=== PATIENT | female | born 1955 | race Caucasian/White ===

== ENCOUNTER 2019-11-06 08:09 | Outpatient (CLI) | payer MEDICARE, SELFPAY ==
--- NOTE | 2019-11-06 08:15 | MM_ITS ---
WS: [id number] BILATERAL SCREENING DIGITAL MAMMOGRAM WITH CAD HISTORY: SCREENING COMPARISON: 05/25/2018, 12/16/2016 and 11/15/2015 Bilateral CC and MLO views submitted. Computer aided detection analyzed. Breast composition: There are scattered areas of fibroglandular density. No suspicious masses, microc alcifications or architectural distortion. Benign rodlike calcifications in the RIGHT breast. MM/[place] [id number] IMPRESSION: BI-RADS: 2-Benign FOLLOW UP: 1 Year Follow-up
== END 2019-11-06 08:10 | disposition home or self-care (01) ==
PROVIDERS: PCP Internal Medicine; Visit Provider Internal Medicine
DX: Z12.31 Encounter for screening mammogram for malignant neoplasm of breast (principal)
CPT/HCPCS: 77067

== ENCOUNTER 2019-12-26 16:11 | Outpatient (CLI) | payer MEDICARE, SELFPAY ==
--- NOTE | 2019-12-26 | MR_ITS ---
WS: [id number] EXAM: MR shoulder LT wo con* [id number] DATE OF EXAMINATION: 12/26/2019, 1722 hours COMPARISON: None. HISTORY: 64 years old with pain in the left shoulder TECHNIQUE: Oblique coronal T1, fat sat proton density and fat sat T2; oblique sagittal fat-sat proton density and fat sat T2; axial fat sat proton density. FINDINGS: Beginning posteriorly the teres minor muscle and tendon are normal in appearance. Infraspinatus muscl e is normal in appearance. There is tendinopathy within the distal tendon with intrasubstance microte ars. No tear to the joint or bursal surface seen. Supraspinatus muscle is of normal caliber. There is tendinopathy within the tendon with intrasubstanc e microtears. Small amount of increased signal is seen around the tendon suggesting peritendinitis ch prakash. There is a tiny area of tearing which is considered minute which may extend to the bursal surfa ce in the anterior corner at the level of the interval. Otherwise no tear to the joint or bursal surf osvaldo is seen. Subscapularis muscle and tendon are normal in appearance. Long head of the biceps courses through the inner bicipital groove to insert on the anterior/superior aspect of the labrum. No definite labral a bnormality is seen. There are findings of arthritis within the AC joint with undersurface osteophyte formation which has mass effect upon the supraspinatus muscle at the myotendinous junction with some minimal fluid in sub acromial bursa. Imaging findings are suggestive for impingement. Acromion is a type II with a neutral slope. MR/MR shoulder LT wo con* [id number] IMPRESSION: Tendinopathy within both infraspinous and supraspinatus tendons. In the very an terior corner of the supraspinatus tendon at the level of the interval there ma y be a small fenestrated bursal sided tear component. This is considered minute in size if present. AC joint arthritis with undersurface osteophyte formation with mass effect upon the supraspinatus muscle belly.
== END 2019-12-26 16:12 | disposition home or self-care (01) ==
LOC: RADSHAW 16:17
PROVIDERS: PCP Internal Medicine; Visit Provider Internal Medicine
DX: M13.812 Other specified arthritis, left shoulder (principal)
CPT/HCPCS: 73221

== ENCOUNTER → 2020-01-24 12:02 | Outpatient (BNVA) | payer MEDICARE, SELFPAY | PROVIDERS: PCP Internal Medicine; Referring Provider Nurse Practitioner Family; Visit Provider Orthopaedic Surgery | DX: M54.12 Radiculopathy, cervical region (principal) | CPT/HCPCS: 72040 ==

== ENCOUNTER 2020-12-05 11:13 | Outpatient (CLI) | payer MEDICARE, SELFPAY ==
--- NOTE | 2020-12-05 11:20 | MM_ITS ---
WS: [id number] BILATERAL DIGITAL SCREENING MAMMOGRAPHY WITH CAD CLINICAL INFORMATION: SCREENING HISTORY: Screening mammogram. No current complaints. COMPARISON: November 06, 2019 TECHNIQUE: Bilateral CC and MLO views. FINDINGS: Scattered fibroglandular densities bilaterally. Secretory calcifications right breast. No suspicious focal mass, asymmetry, calcifications, or architectural distortion. No evidence of malignancy. MM/[place] [id number] IMPRESSION: BI-RADS: 2-Benign FOLLOW UP: 1 Year Follow-up Recommend return to annual screening mammography.
== END 2020-12-05 11:14 | disposition home or self-care (01) ==
LOC: RADSHAW 11:17
PROVIDERS: PCP Internal Medicine; Visit Provider Internal Medicine
DX: Z12.31 Encounter for screening mammogram for malignant neoplasm of breast (principal)
CPT/HCPCS: 77067

== ENCOUNTER → 2021-10-16 08:04 | Outpatient (BNVA) | payer MEDICARE, SELFPAY | PROVIDERS: PCP Internal Medicine; Visit Provider Surgery | DX: Z12.11 Encounter for screening for malignant neoplasm of colon (principal) | CPT/HCPCS: 99024 ==

== ENCOUNTER 2021-12-04 05:54 | Day surgery (SDC) | payer MEDICARE, SELFPAY ==
[2021-12-02 09:22] VITALS: BMI 31.1
[2021-12-04 06:16] VITALS: BP 189/87; PULSE 59; RESP 18; TEMP 36; O2SAT 97
[2021-12-04] MEDS: sodium chloride 0.9% 1,000 ML 30 ML IV (06:26)
--- NOTE | 2021-12-04 06:44 | P.ANESASSM_ITS ---
Pre-Anesthetic Assessment Height/Weight: Height 1.57 m Weight 77.111 kg Temp Pulse Resp BP Pulse Ox O2 Del Method 96.8 F L 59 L 18 189/87 97 12/04/21 06:16 12/04/21 06:16 12/04/21 06:16 12/04/21 06:16 12/04/21 06:16 12/04/21 06:16 Operation Date: 12/04/21 07:00 Proposed Procedures p Colonoscopy 76896,Z12.11(Not Applicable) - Donato Clarke DO Familial anesthetic complications: none Was Beta Sarah taken within 24 hours: Yes Was Clonidine taken within 24 hours: N/A Last intake: Intake Last Liquid Date 12/03/21 Last Liquid Time 20:00 Last Solid Date 12/02/21 Last Solid Time 18:00 Social No alcohol and No tobacco Airway Submandibular: within normal limits Cervical ROM: within normal limits Mallampati: Class III Dentition: full Pulmonary Sleep Apnea (CPAP compliant) CV/HEM Hypertension None reported Hepatic None reported GI Gastroesophageal Reflux Disease (well controlled on medication) and Hiatal Hernia Metabolic None reported Musc/skel Fibromyalgia, Lower Back Pain and Osteoarthritis/DJD Neuropsych Depression Anesthetic Plan ASA status: 3 Anesthesia: MAC Medications/Allergies Home Medications Medication Instructions Recorded Confirmed Last Taken Type aspirin 81 mg tablet,delayed 81 mg PO DAILY 01/24/20 12/04/21 12/03/21 History release atenolol 25 mg tablet 25 mg PO DAILY 01/24/20 12/04/21 12/04/21 History celecoxib 200 mg capsule 200 mg PO DAILY 01/24/20 12/04/21 12/03/21 History duloxetine 60 mg capsule,delayed 60 mg PO DAILY 01/24/20 12/04/21 12/03/21 History release sprinkle gabapentin 400 mg capsule 400 mg PO TID 01/24/20 12/04/21 12/03/21 History hydrocodone 5 mg-acetaminophen 325 1 tab PO BID PRN Pain 01/24/20 12/04/21 12/03/21 History mg tablet (Hospers) latanoprost 0.005 % eye drops 1 drop ophthalmic (eye) DAILY 01/24/20 12/04/21 12/03/21 History lisinopril 40 mg tablet 40 mg PO DAILY 01/24/20 12/04/21 12/03/21 History omega-3 fatty acids 1,000 mg 1,000 mg PO DAILY 01/24/20 12/04/21 12/03/21 History capsule (Fish Oil Concentrate) omeprazole 20 mg capsule,delayed 20 mg PO DAILY 01/24/20 12/04/21 12/03/21 History release pravastatin 20 mg tablet 20 mg PO DAILY 01/24/20 12/04/21 12/03/21 History tramadol 50 mg tablet 50 mg PO DAILY 01/24/20 12/04/21 12/03/21 History clonidine HCl 0.2 mg tablet 0.2 mg PO BID 10/16/21 12/04/21 12/03/21 History Allergies Allergy/AdvReac Type Severity Reaction Status Date / Time No Known Allergies Allergy Verified 12/04/21 06:11 Current Medications Generic Name Dose Route Start Last Admin Trade Name Freq PRN Reason Stop Dose Admin Sodium Chloride 1,000 mls @ 30 mls/hr 12/04/21 06:00 12/04/21 06:26 Sodium Chloride 0.9% IV 12/05/21 05:59 30 mls/hr .Q24H JACLYN Administration Data Anesthesia Cardiac Studies: No Data to Display
--- NOTE | 2021-12-04 06:58 | P.HP_ITS ---
Providers/Chief Complaint Primary Care Provider: Micheline Hodge MD Chief Complaint: Colon cancer screening History of Present Illness Zulma Colon is a 65 year old female who presents for her second screening colonoscopy. Her last one was quite sometime ago. She reports that she has having occasional bright red blood in small amounts on the toilet paper. Her last colonoscopy was reportedly normal. No other complaints Review of Systems General: Reports: 10 or more systems reviewed and unremarkable except in HPI and below Medications/Allergies Home Medications Medication Instructions Recorded Confirmed Last Taken Type aspirin 81 mg tablet,delayed 81 mg PO DAILY 01/24/20 12/04/21 12/03/21 History release atenolol 25 mg tablet 25 mg PO DAILY 01/24/20 12/04/21 12/04/21 History celecoxib 200 mg capsule 200 mg PO DAILY 01/24/20 12/04/21 12/03/21 History duloxetine 60 mg capsule,delayed 60 mg PO DAILY 01/24/20 12/04/21 12/03/21 History release sprinkle gabapentin 400 mg capsule 400 mg PO TID 01/24/20 12/04/21 12/03/21 History hydrocodone 5 mg-acetaminophen 325 1 tab PO BID PRN Pain 01/24/20 12/04/21 12/03/21 History mg tablet (Lorimor) latanoprost 0.005 % eye drops 1 drop ophthalmic (eye) DAILY 01/24/20 12/04/21 12/03/21 History lisinopril 40 mg tablet 40 mg PO DAILY 01/24/20 12/04/21 12/03/21 History omega-3 fatty acids 1,000 mg 1,000 mg PO DAILY 01/24/20 12/04/21 12/03/21 History capsule (Fish Oil Concentrate) omeprazole 20 mg capsule,delayed 20 mg PO DAILY 01/24/20 12/04/21 12/03/21 History release pravastatin 20 mg tablet 20 mg PO DAILY 01/24/20 12/04/21 12/03/21 History tramadol 50 mg tablet 50 mg PO DAILY 01/24/20 12/04/21 12/03/21 History clonidine HCl 0.2 mg tablet 0.2 mg PO BID 10/16/21 12/04/21 12/03/21 History Allergies Allergy/AdvReac Type Severity Reaction Status Date / Time No Known Allergies Allergy Verified 12/04/21 06:11 Vitals/I&O/Wt Last Vital Signs Temp 96.8 F L 12/04/21 06:16 Pulse 59 L 12/04/21 06:16 Resp 18 12/04/21 06:16 BP 189/87 12/04/21 06:16 Pulse Ox 97 12/04/21 06:16 O2 Del Method 12/04/21 06:16 Weight last 48 hrs Weight 170 lb Physical Exam Narrative: General : Patient is well developed , no acute distress, oriented x3 Head : Normal cephalic, a-traumatic. Ears : Pinnae and external canal are normal. Hearing is normal. Eyes : PERRLA, Sclera and injection are normal. No conjunctival discharge. Nose : Mucous membranes are without erythema. Throat : buccal mucosa is normal, gums are without significant recession or hypertrophy. Lungs : Equal chest rise bilaterally, no use of accessory muscles, trachea is midline. Cor : Rate and rhythm are normal. Abdomen : Soft, ND, NT, no g/r/m Extremities : No edema, no cyanosis or clubbing, dorsalis pedis pulses are present bilaterally, non-tender to palpation of calves. Upper extremities are normal bilaterally. Back : non-tender to palpation, no CVA tenderness. Neuro : CN II - XII intact, Upper and lower extremities have equal and full strength A&P Assessment and plan (1) Colon cancer screening: Status: Acute Plan Colonoscopy The risks and benefits of the procedure, including bleeding, infection, intestinal perforation requiring surgery, missed lesion, or explained to the patient. He is understanding of the risks and wishes to proceed. Attestations Medical Necessity Statement*: Patient will be discharged home after the procedure Coding Level of Care Code Acute Communications Attendant for Siri Sawyer Diagnoses Colon cancer screening Z12.11
[2021-12-04 07:24] VITALS: BP 116/59; PULSE 51; RESP 18; TEMP 36.6; O2SAT 98
[2021-12-04 07:36] VITALS: BP 133/71; PULSE 54; RESP 18; TEMP 36.5; O2SAT 100
--- NOTE | 2021-12-04 12:46 | ANE.PACU2 ---
Inpatient post-anesthesia follow up: Airway intact: Yes Vital signs: Temperature 97.7 F Pulse Rate 54 Respiratory Rate 18 Blood Pressure 133/71 Pulse Oximetry 100 Oxygen Delivery Me thod Room Air Oxygen Flow Rate Fraction of Inspir ed Oxygen Hydration adequate: Yes Nausea and vomiting: Yes Pain level: 1 Mental status: Baseline
== END 2021-12-04 07:52 | disposition home or self-care (01) ==
PROVIDERS: PCP Internal Medicine; Visit Provider Surgery
PROC: 0DJD8ZZ Inspection of Lower Intestinal Tract, Via Natural or Artificial Opening Endoscopic (ICD-10-PCS; CPT 45378; principal; 2021-12-04 07:00)
DX: Z12.11 Encounter for screening for malignant neoplasm of colon (principal); Z79.82 Long term (current) use of aspirin; K64.0 First degree hemorrhoids; G47.30 Sleep apnea, unspecified; I10 Essential (primary) hypertension; K21.9 Gastro-esophageal reflux disease without esophagitis; M79.7 Fibromyalgia; F32.A Depression, unspecified
CPT/HCPCS: 45378; J2704; J3490; J7030

== ENCOUNTER 2022-05-28 13:12 | Outpatient (CLI) | payer MEDICARE, SELFPAY ==
--- NOTE | 2022-05-28 13:18 | MM_ITS ---
WS: [id number] BILATERAL 3D TOMOSYNTHESIS DIGITAL SCREENING MAMMOGRAPHY WITH CAD CLINICAL INFORMATION: SCREENING HISTORY: Screening mammogram. No current complaints. COMPARISON: 2020 TECHNIQUE: Bilateral CC and MLO views. FINDINGS: Scattered fibroglandular densities bilaterally. No suspicious focal mass, asymmetry, calcifications, or architectural distortion. No evidence of malignancy. Vascular calcification. A few incidental punc torres calcifications. MM/[place] [id number] IMPRESSION: BI-RADS: 2-Benign FOLLOW UP: 1 Year Follow-up Recommend return to annual screening mammography.
== END 2022-05-28 13:13 | disposition home or self-care (01) ==
LOC: RAD 13:13
PROVIDERS: PCP Internal Medicine; Visit Provider Internal Medicine
DX: Z12.31 Encounter for screening mammogram for malignant neoplasm of breast (principal)
CPT/HCPCS: 77063; 77067

== ENCOUNTER 2023-04-14 16:41 | Outpatient (CLI) | payer MEDICARE, SELFPAY ==
--- NOTE | 2023-04-14 | MR_ITS ---
WS: [id number] MRI HEAD WITHOUT CONTRAST TECHNIQUE: Sagittal T1, T2 axial, T2 axial FLAIR, axial and coronal T1 images, axial susceptibility w eighted imaging, axial diffusion weighted images, and coronal T2 images were obtained. CLINICAL INFORMATION: DIZZINESS GIDDINESS COMPARISON: None. FINDINGS: In the LEFT frontal lobe there is a T1 hyperintense heterogeneous extra-axial lesion measuring approx imately 2.6 x 1.9 cm. Associated susceptibility artifact which may represent hemosiderin versus calci fication. No underlying edema in the LEFT frontal lobe. Recommend further evaluation with noncontrast head CT and MRI of the head with gadolinium enhancement. No evidence of restricted diffusion to suggest acute ischemia. Normal posterior fossa. Normal vascula r flow voids at the skull base. No extra-axial fluid collections. Mild mucosal thickening in the para nasal sinuses. Normal optic chiasm and pituitary infundibulum. Mild symmetric atrophy temporal lobes and hippocampal formations. IMPRESSION: 1. Heterogeneous extra-axial lesion overlying the LEFT frontal lobe with associated mass effect. No significant underlying edema. 2. LEFT frontal mass demonstrates T1 hyperintensity with susceptibility artifact compatible with hem osiderin and/or calcification. Recommend further evaluation with noncontrast head CT and MRI with paulina olinium. Recommend neurosurgery consultation 3. No restricted diffusion to suggest acute ischemia. 4. Mild small vessel changes with mild to moderate parenchymal volume loss. Notified Micheline Hodge MD at 04/15/2023 9:25 AM.
== END 2023-04-14 16:42 | disposition home or self-care (01) ==
LOC: RAD 16:41
PROVIDERS: PCP Internal Medicine; Visit Provider Internal Medicine
DX: R42 Dizziness and giddiness (principal); G93.9 Disorder of brain, unspecified
CPT/HCPCS: 70551

== ENCOUNTER 2023-04-19 15:31 | Outpatient (CLI) | payer MEDICARE, SELFPAY ==
--- NOTE | 2023-04-19 | CTR_ITS ---
PROCEDURE INFORMATION: Exam: CT Head Without Contrast Exam date and time: 04/19/2023 4:02 PM Age: 67 years old Clinical indication: Condition or disease; Other: Frontal lobe mass TECHNIQUE: Imaging protocol: Computed tomography of the head without contrast. Radiation optimization: All CT scans at this facility use at least one of these dose optimization techniques: automated exposure control; mA and/or kV adjustment per patient size (includes targeted exams where dose is matched to clinical indication); or iterative reconstruction. REPORTING DATA: Count of CT and Cardiac NM exams in prior 12 months: This patient has received 0 known CTs and 0 known cardiac nuclear medicine studies in the 12 months prior to the current study. COMPARISON: MR head wo con* [id number] 04/14/2023 5:23 PM RADIATION DOSE METRICS: Total DLP (mGy-cm): 1003.2 FINDINGS: Brain: Fat containing extra-axial mass left frontal lobe anterolaterally is seen measuring up to 2.4 cm. This has several small adjacent lobulations anteriorly. It lies just deep to a focal area of bone defect superolateral to the left orbit. There are also several small extra-axial fat lobulations overlying right frontal lobe and parasagittal location. Cerebral ventricles: No ventriculomegaly. Paranasal sinuses: Visualized sinuses are unremarkable. No fluid levels. Mastoid air cells: Visualized mastoid air cells are well aerated. Bones/joints: See Brain finding. Soft tissues: Unremarkable. CT/CT head wo con* [id number] IMPRESSION: Fat containing extra-axial mass adjacent to left frontal lobe with several additional locations and separately several small fat containing areas along the inner table of the skull left frontal region parasagittally. Findings consistent with dermoid cyst. Focal bony defect may indicate dermal sinus tract. The separate fat containing areas raise the question of rupture.
== END 2023-04-19 15:32 | disposition home or self-care (01) ==
PROVIDERS: PCP Internal Medicine; Visit Provider Internal Medicine
DX: G93.9 Disorder of brain, unspecified (principal)
CPT/HCPCS: 70450

== ENCOUNTER 2023-04-20 12:44 | Outpatient (CLI) | payer MEDICARE, SELFPAY ==
--- NOTE | 2023-04-20 12:53 | MR_ITS ---
WS: [id number] MRI BRAIN WITH CONTRAST HISTORY: LEFT FRONTAL LOBE MASS COMPARISON: CT head 04/19/2023 and prior MRI brain 04/14/2023. TECHNIQUE: Multiplanar imaging performed through the brain with MultiHance 14 ml's IV. Precontrast im aging performed on 04/14/2023. Cystic mass is reidentified in the LEFT frontal lobe. Mass is slightly lobulated and is of increased T1 signal as noted on the prior noncontrast examination. On the FSPGR sequence which does have fat hill ppression this mass completely suppresses with only mild increased signal in the periphery with mild enhancement. This is most consistent with a dermoid cyst. Highly suspicious for rupture as there are several lipid droplets noted adjacent to the dermoid cyst and also along the superior vertex in the subarachnoid space. There is a small dermal sinus tract extending through the frontal bone. IMPRESSION: 1. Fat-containing mass centered in the LEFT frontal lobe cortex is most consistent with a ruptured d ermoid cyst. Patient is at risk for a chemical meningitis. 2. Several fat droplets are noted adjacent to the dermoid cyst and also in the subarachnoid space al siena the vertex.
[2023-04-20] MEDS: gadobenate dimeglumine 20 mL vial IV (13:45)
== END 2023-04-20 12:45 | disposition home or self-care (01) ==
LOC: RAD 12:44
PROVIDERS: PCP Internal Medicine; Visit Provider Internal Medicine
DX: G93.9 Disorder of brain, unspecified (principal)
CPT/HCPCS: 70552; A9577

== ENCOUNTER 2023-06-28 12:47 | Outpatient (CLI) | payer MEDICARE, SELFPAY ==
--- NOTE | 2023-06-28 12:59 | USCV_ITS ---
Zulma Colon Age: 67 Gender: F : 1955 Exam Date: 06/28/2023 13:23 Ordering Phys: Micheline Hodge MD Technologist: CT Exam [place] [facility] [place]: dizziness Risk Factors: Previous Vascular Surgery: Right Brachial BP: / Left Brachial BP: / Right Left Velocity (cm/s) Spectral Plaque Velocity (cm/s) Spectral Plaque Syst/Diast Broadening Syst/Diast Broadening 65.90/ 14.90 Prox CCA 85.00 / 22.40 71.70/ 17.30 Mid CCA 72.50 / 18.70 77.50/ 21.90 Distal CCA 67.50 / 14.90 78.90/ 18.00 Prox ICA 51.50 / 17.40 52.40/ 19.50 Mid ICA 50.40 / 17.40 62.20/ 12.30 Distal ICA 50.30 / 18.40 55.60 ECA 78.80 1.00 ICA/CCA Antegrade Vertebral Antegrade 30.60/ 7.20 cm/s 50.10/ 11.30 cm/s Bi Subclavian Bi CONCLUSIONS Right ICA stenosis <50%. Moderate calcified atheromatous plaque right carotid bulb/ICA. Left ICA stenosis <50%. Moderate calcified atheromatous plaque left carotid bulb/ICA. Normal antegrade Doppler flow noted in the right vertebral artery. Normal antegrade Doppler flow noted in the left vertebral artery. Terrell Sylvester MD (Electronically Signed) Final Date: 28 June 2023 16:39 S
== END 2023-06-28 12:48 | disposition home or self-care (01) ==
LOC: RAD 12:48
PROVIDERS: PCP Internal Medicine; Visit Provider Internal Medicine
DX: R42 Dizziness and giddiness (principal); I65.23 Occlusion and stenosis of bilateral carotid arteries
CPT/HCPCS: 93880

== ENCOUNTER 2023-08-11 11:55 | Outpatient (CLI) | payer MEDICARE, SELFPAY ==
--- NOTE | 2023-08-11 11:57 | MM_ITS ---
WS: [id number] BILATERAL 3D TOMOSYNTHESIS DIGITAL SCREENING MAMMOGRAPHY WITH CAD CLINICAL INFORMATION: SCREENING HISTORY: Screening mammogram. No current complaints. COMPARISON: 2022 TECHNIQUE: Bilateral CC and MLO views. FINDINGS: The breasts are composed of heterogeneous fibroglandular density tissue, which can limit the detectio n of small underlying mass lesions. No suspicious mass, asymmetry, calcifications, or architectural d istortion. No evidence of malignancy. Vascular calcifications. Incidental punctate calcifications. IMPRESSION: MM/[place] [id number] BI-RADS: 2-Benign FOLLOW UP: 1 Year Follow-up Recommend return to annual screening mammography.
== END 2023-08-11 11:56 | disposition home or self-care (01) ==
LOC: RAD 11:55
PROVIDERS: PCP Internal Medicine; Visit Provider Internal Medicine
DX: Z12.31 Encounter for screening mammogram for malignant neoplasm of breast (principal)
CPT/HCPCS: 77063; 77067

== ENCOUNTER 2024-01-07 14:51 | Outpatient (CLI) | payer MEDICARE, SELFPAY ==
--- NOTE | 2024-01-07 14:56 | USCV_ITS ---
Isaiah Zulma Age: 68 Gender: F : 1955 Exam Date: 01/07/2024 15:11 Ordering Phys: Micheline Hodge MD Technologist: CT Exam Location: [facility] – [place] Indication: murmur BP: 128 / 82 HR: 52 Rhythm: Sinus Technical Quality: Adequate MEASUREMENTS (Male / Female) Normal Values 2D ECHO LVOT Diameter 2.0 cm LV Ejection Fraction MOD 4C 58.1 % LV Ejection Fraction MOD 2C 71.0 % LV Ejection Fraction 2C AL 71.5 % LA Diameter 3.1 cm RA Systolic Volume 4C AL 17.5 ml RA Systolic Volume 4C MOD 17.1 ml LA Sys Volume AL 29.4 cm cubed LA Sys Volume Index AL 16.3 cm cubed/m squared Aorta at Sinotubular Diameter 1.9 cm IVC Diameter 1.9 cm M-MODE LA Ao Ratio MM 2.0 AV Cusp Separation MM 2.0 cm DOPPLER AV Peak Velocity 125.0 cm/s LVOT Peak Velocity 102.0 cm/s AV Area Cont Eq vti 2.7 cm squared AV Area Cont Eq pk 2.6 cm squared MV Peak Velocity 93.0 cm/s MV Area PHT 3.0 cm squared Mitral E to A Ratio 0.7 TV Peak Velocity 158.5 cm/s TR Peak Velocity 189.0 cm/s TR Peak Gradient 14.3 mmHg TV Peak E Velocity 55.0 cm/s Right Atrial Pressure 3.0 mmHg Pulmonary Artery Systolic Pressu 17.3 mmHg FINDINGS Left Ventricle Left ventricular is normal in size. LV systolic function is normal with EF of 60-65 %. No regional wall motion abnormalities are seen. Grade 1 disatolic dysfunction. Right Ventricle Normal in size and function Right Atrium Normal size Left Atrium Normal in size Mitral Valve Structurally normal mitral valve. Mild mitral regurgitation Aortic Valve Structurally normal aortic valve. No significant stenosis or regurgitation. Tricuspid Valve Mild tricuspid regurgitation. Insufficient TR jet to calculate RVSP Pulmonic Valve Not well visualized Pericardium Normal Aorta Normal in size IVC Appears to be normal CONCLUSIONS LV systolic function is normal with EF of 60-65% Grade 1 diastolic dysfunction Mild mitral regurgitation Mild tricuspid regurgitation No comparison studies are available. Hernandez Raphael MD (Electronically Signed) Final Date: 10 January 2024 18:58 S
== END 2024-01-07 14:52 | disposition home or self-care (01) ==
LOC: RAD 14:52
PROVIDERS: PCP Internal Medicine; Visit Provider Internal Medicine
DX: I50.30 Unspecified diastolic (congestive) heart failure (principal)
CPT/HCPCS: 93306

== ENCOUNTER 2024-05-11 17:38 | Inpatient (IN) | payer MEDICARE, SELFPAY ==
[2024-05-11] VITALS (15 sets, daily range): BP systolic 91–154; BP diastolic 58–100; PULSE 77–95; RESP 17–24; TEMP 36.7; O2SAT 90–96; BMI 30.2
--- NOTE | 2024-05-11 20:44 | XRR_ITS ---
PROCEDURE INFORMATION: Exam: XR Chest Exam date and time: 05/11/2024 9:19 PM Age: 68 years old Clinical indication: Shortness of breath and tachypnea; Additional info: Shortness of breath, cough, tachypnea TECHNIQUE: Imaging protocol: Radiologic exam of the chest. Views: 2 views. COMPARISON: CR XR cervical spine 3V* [id number] 01/24/2020 12:07 PM FINDINGS: Lungs: Patchy opacity in the right lower lung zone measuring 7 mm. No focal consolidation. Pleural spaces: Unremarkable. No pleural effusion. No pneumothorax. Heart/Mediastinum: Unremarkable. No cardiomegaly. Vasculature: There are aortic arch calcifications. Bones/joints: Moderate degenerative disease of bilateral acromioclavicular joints. Mild curvature of the lower thoracic spine convex to the right. XR/XR chest 2V insp/exp [id number] IMPRESSION: No acute cardiopulmonary process.
[2024-05-11 20:49] LABS: Basophils % 0.1 %; Hematocrit 44.3 % (36-47); Lymphocytes # 2.5 10^3/uL (0.8-4.8); Lymphocytes % 14.8 %; Mean Corpuscular HGB Conc 34.5 g/dL (30-55); Mean Corpuscular Hemoglobin 31.5 pg (27-33); Mean Corpuscular Volume 91.3 fl (85-98); Mean Platelet Volume 10.7 fL (7.4-10.4); Monocytes # 1.2 10^3/uL (0.2-0.9); Monocytes % 7.2 %; Neutrophils # 12.77 10^3/uL (1.8-7.7); Nucleated Red Blood Cells % 0 %; Platelet Count 249 10^3/cmm (157-399); Red Blood Count 4.85 10^6/uL (3.85-5.65); Red Cell Distribution Width 13.2 % (12.1-15.1)
[2024-05-11 21:02] LABS: Alanine Aminotransferase 24 U/L (0-33); Alkaline Phosphatase 74 U/L (35-105); Anion Gap 23.8 (5-19); Aspartate Amino Transferase 33 U/L (0-32); Calcium 10.3 mg/dL (8.5-10.5); Carbon Dioxide 20 mmol/L (22-29); Chloride 94 mmol/L (98-107); Globulin 3.9 g/dL (1.3-4.6); Glomerular Filtration Rate 15.4 mL/min (90-130); Glucose 115 mg/dL (65-115); Osmolality Calculated 310 mOsm/kg (285-295); Potassium 4.8 mmol/L (3.5-5.1); Sodium 133 mmol/L (136-145); Total Bilirubin 0.3 mg/dL (0.15-1.2); Total Protein 7.9 g/dL (6.6-8.7)
[2024-05-11 21:03] LABS: Lactic Sepsis W/Reflex 1.2 mmol/L (0.5-2.2)
[2024-05-11 21:04] LABS: Blood Urea Nitrogen 104 mg/dL (8-23)
[2024-05-11] MEDS: ondansetron 4 MG Tablet PO (21:05)
[2024-05-11] MEDS: sodium chloride 0.9% 1,000 ML 999 ML IV (21:06)
[2024-05-11 21:20] LABS: Slide Review Slide Review Perform
[2024-05-11 21:22] LABS: Covid PCR NEGATIVE (Negative); Influenza A POSITIVE (Negative); Influenza B NEGATIVE (Negative); Respiratory Syncytial Virus Ce NEGATIVE (Negative)
--- NOTE | 2024-05-11 21:35 | ED_ITS ---
HPI - URI/Sore Throat 2 General: Chief Complaint: Upper Respiratory Infection Stated Complaint: flu symptoms Time Seen by Provider: 05/11/24 20:17 History of Present Illness: The patient presents to the emergency department with chief complaints of dehydration, nausea, and diarrhea. They report not eating much for the past 2-3 days and have taken their medications yesterday but not today. The patient experienced a fever approximately 4-5 days ago, accompanied by chills, which has since resolved. They also report having significant congestion. The patient's grandmother has been sick for about a week. The patient has a history of kidney disease, but their kidney function has returned to normal. They have no history of heart failure. The patient's oxygen levels are low at 77%. Upon physical examination, the patient's left lung presents with crackles, suggesting possible pneumonia. The patient denies any abdominal pain upon palpation. Related Data Home Medications Medication Instructions Recorded Confirmed aspirin 81 mg tablet,delayed 81 mg PO DAILY 01/24/20 12/04/21 release atenolol 25 mg tablet 25 mg PO DAILY 01/24/20 12/04/21 celecoxib 200 mg capsule 200 mg PO DAILY 01/24/20 12/04/21 duloxetine 60 mg capsule,delayed 60 mg PO DAILY 01/24/20 12/04/21 release sprinkle gabapentin 400 mg capsule 400 mg PO TID 01/24/20 12/04/21 hydrocodone 5 mg-acetaminophen 325 1 tab PO BID PRN Pain 01/24/20 12/04/21 mg tablet ([place]) latanoprost 0.005 % eye drops 1 drop ophthalmic (eye) DAILY 01/24/20 12/04/21 lisinopril 40 mg tablet 40 mg PO DAILY 01/24/20 12/04/21 omega-3 fatty acids 1,000 mg 1,000 mg PO DAILY 01/24/20 12/04/21 capsule (Fish Oil Concentrate) omeprazole 20 mg capsule,delayed 20 mg PO DAILY 01/24/20 12/04/21 release pravastatin 20 mg tablet 20 mg PO DAILY 01/24/20 12/04/21 tramadol 50 mg tablet 50 mg PO DAILY 01/24/20 12/04/21 clonidine HCl 0.2 mg tablet 0.2 mg PO BID 10/16/21 12/04/21 Previous Rx's Medication Instructions Recorded hydrocortisone 2.5 % topical cream 1 applic SD Q6H 10 days #30 grams 12/04/21 with perineal applicator (Anusol-HC) Allergies Allergy/AdvReac Type Severity Reaction Status Date / Time No Known Allergies Allergy Verified 12/04/21 06:11 [facility] ED 2 PFSH: Medical History (Updated 05/12/24 @ 00:53 by Devonte Key DO) Dermoid cyst of brain Fibromyalgia Hyperlipidemia Obstructive sleep apnea Hypertension Left cervical radiculopathy Physical Exam 2 Const: COMMON NORMALS: no acute distress, patient oriented x3, healthy appearing, alert and well nourished HENMT: COMMON NORMALS: normocephalic HEAD & SCALP: normocephalic Eye: COMMON NORMALS: EOMs intact bilaterally Neck/C-Spine: COMMON NORMALS: full ROM and supple Resp: COMMON NORMALS: normal respiratory effort, No retractions and clear to auscultation bilaterally AUSCULTATION: clear to auscultation bilaterally and crackles Laterality: right Cardio: COMMON NORMALS: regular rate, regular rhythm, No gallops present (Cardio) and No murmurs present (Cardio) RATE: regular rate RHYTHM: r egular rhythm GI: COMMON NORMALS: Soft to palpation and non-tender PALPATION: Yes Soft to palpation Extremity: GENERAL: Yes normal exam except as noted Neuro: COMMON NORMALS: patient oriented x3 SENSORIUM/ORIENTATION: Yes alert Skin: COMMON NORMALS: no rashes or lesions noted GENERAL SKIN EXAM: no rashes or lesions noted Course 2 Vital Signs: Vital signs: Vital Signs Temperature 98.0 F 05/11/24 19:15 Pulse Rate 89 05/12/24 00:36 Respiratory Rate 20 H 05/12/24 00:36 Blood Pressure 168/75 05/12/24 00:36 Pulse Oximetry 93 05/12/24 00:36 Oxygen Delivery Me thod Room Air 05/12/24 00:00 Oxygen Flow Rate 2 05/11/24 20:45 MDM - URI/Sore Throat Medical Decision Making 68-year-old female presents to the emergency department for evaluation of nausea, vomiting, diarrhea, shortness of breath, cough, and malaise. Patient's symptoms are consistent with an upper respiratory infection. Patient does have an O2 demand of 2 L that is not baseline for her. She has also been tachypneic while here in the emergency department. Patient's blood pressure responded well to fluid resuscitation. Concern for viral versus bacterial pneumonia. Her laboratory evaluation did demonstrate acute kidney injury, influenza infection, leukocytosis. Based on patient's curb 65 score of 4 and risk for at home therapy we will plan for admission. Dr. Beltran agreed to admit the patient to the hospital for further management. Discussed risk and benefits with the patient and her family who are all in agreement for her admission. Lab Data 05/11/24 20:41 05/11/24 20:41 Radiology Impressions Chest X-Ray 05/11/24 20:44 IMPRESSION: No acute cardiopulmonary process. Laboratory Results WBC 16.60 10^3/uL (3.29-11.43) H 05/11/24 20:41 RBC 4.85 10^6/uL (3.85-5.65) 05/11/24 20:41 Hgb 15.30 g/dL (11.27-16.99) 05/11/24 20:41 Hct 44.3 % (36-47) 05/11/24 20:41 MCV 91.3 fl (85-98) 05/11/24 20:41 MCH 31.5 pg (27-33) 05/11/24 20:41 MCHC 34.5 g/dL (30-55) 05/11/24 20:41 RDW 13.2 % (12.1-15.1) 05/11/24 20:41 Plt Count 249 10^3/cmm (157-399) 05/11/24 20:41 MPV 10.7 fL (7.4-10.4) H 05/11/24 20:41 Neut % (Auto) 77.0 % 05/11/24 20:41 Lymph % (Auto) 14.8 % 05/11/24 20:41 [place] % (Auto) 7.2 % 05/11/24 20:41 Eos % (Auto) 0.0 % 05/11/24 20:41 Baso % (Auto) 0.1 % 05/11/24 20:41 Neut # (Auto) 12.77 10^3/uL (1.8-7.7) H 05/11/24 20:41 Lymph # (Auto) 2.5 10^3/uL (0.8-4.8) 05/11/24 20:41 [place] # (Auto) 1.2 10^3/uL (0.2-0.9) H 05/11/24 20:41 Eos # (Auto) 0.0 10^3/uL (0.0-0.8) 05/11/24 20:41 Baso # (Auto) 0.0 10^3/uL (0.0-0.1) 05/11/24 20:41 Nucleated RBC % (auto) 0 % 05/11/24 20:41 Nucleated RBCs # 0.0 /100WBC 05/11/24 20:41 Sodium 133 mmol/L (136-145) L 05/11/24 20:41 Potassium 4.8 mmol/L (3.5-5.1) 05/11/24 20:41 Chloride 94 mmol/L (98-107) L 05/11/24 20:41 Carbon Dioxide 20 mmol/L (22-29) L 05/11/24 20:41 Anion Gap 23.8 (5-19) H 05/11/24 20:41 BUN 104 mg/dL (8-23) H* 05/11/24 20:41 Creatinine 3.0 mg/dL (0.5-0.9) H 05/11/24 20:41 GFR Calculation 15.4 mL/min (90-130) L 05/11/24 20:41 Glucose 115 mg/dL (65-115) 05/11/24 20:41 Calculated Osmolality 310 mOsm/kg (285-295) H 05/11/24 20:41 Lactic Acid 1.2 mmol/L (0.5-2.2) 05/11/24 20:41 Calcium 10.3 mg/dL (8.5-10.5) 05/11/24 20:41 Total Bilirubin 0.3 mg/dL (0.15-1.2) 05/11/24 20:41 AST 33 U/L (0-32) H 05/11/24 20:41 ALT 24 U/L (0-33) 05/11/24 20:41 Alkaline Phosphatase 74 U/L (35-105) 05/11/24 20:41 Total Protein 7.9 g/dL (6.6-8.7) 05/11/24 20:41 Albumin 4.0 g/dL (3.5-5.2) 05/11/24 20:41 Globulin 3.9 g/dL (1.3-4.6) 05/11/24 20:41 Procalcitonin 0.79 ng/mL (0-0.5) H 05/11/24 20:41 Coronavirus (PCR) Negative (Negative) 05/11/24 20:41 Influenza A (PCR) Positive (Negative) 05/11/24 20:41 Influenza Type B (PCR) Negative (Negative) 05/11/24 20:41 RSV (PCR) Negative (Negative) 05/11/24 20:41 All radiology interpretation(s) finalized by discharge Discharge Plan Discharge Patient Disposition: Admitted As Inpatient Admit Provider: Vlad Beltran Clinical Impression: Influenza A, CHILANGO (acute kidney injury), Viral pneumonia, Dehydration Condition: Stable Coding Level of Care Code ED Lieutenant Shift Supervisor for Siri Swayer
[2024-05-11] MEDS: cefTRIAXone 1,000 mg SDV 1000 MG IVP (23:27)
--- NOTE | 2024-05-11 23:46 | P.HP_ITS ---
Providers/Chief Complaint 2 Primary Care Provider: Micheline Hodge MD Chief Complaint: flu symptoms History of Present Illness Zulma Colon is a 68 year old female who presented today with generalized weakness and fatigue. Patient is stating that for last 1 week she has been experiencing cough, low-grade fever, chills, she has experiencing low appetite, decreased p.o. intake associate with diarrhea. She is endorsing nausea but no vomiting. On top of that she has been taking her antihypertensive regimen including lisinopril. In the ER she has been diagnosed with influenza A, CHILANGO. Severe dehydration. Requiring 3 L of oxygen. She was hypoxic on room air. Review of Systems 2 Const: Reports: fever(s), chills and change in weight Eyes: Denies: change in vision ENMT: Denies: throat pain Card: Denies: chest pain Resp: Reports: dyspnea GI: Reports: nausea and diarrhea : Denies: flank pain Musc: Reports: back pain Medications/Allergies Home Medications Medication Instructions Recorded Confirmed Last Taken Type aspirin 81 mg tablet,delayed 81 mg PO DAILY 01/24/20 12/04/21 12/03/21 History release atenolol 25 mg tablet 25 mg PO DAILY 01/24/20 12/04/21 12/04/21 History celecoxib 200 mg capsule 200 mg PO DAILY 01/24/20 12/04/21 12/03/21 History duloxetine 60 mg capsule,delayed 60 mg PO DAILY 01/24/20 12/04/21 12/03/21 History release sprinkle gabapentin 400 mg capsule 400 mg PO TID 01/24/20 12/04/21 12/03/21 History hydrocodone 5 mg-acetaminophen 325 1 tab PO BID PRN Pain 01/24/20 12/04/21 12/03/21 History mg tablet ([place]) latanoprost 0.005 % eye drops 1 drop ophthalmic (eye) DAILY 01/24/20 12/04/21 12/03/21 History lisinopril 40 mg tablet 40 mg PO DAILY 01/24/20 12/04/21 12/03/21 History omega-3 fatty acids 1,000 mg 1,000 mg PO DAILY 01/24/20 12/04/21 12/03/21 History capsule (Fish Oil Concentrate) omeprazole 20 mg capsule,delayed 20 mg PO DAILY 0912/04/21 12/03/21 History release pravastatin 20 mg tablet 20 mg PO DAILY 01/24/20 12/04/21 12/03/21 History tramadol 50 mg tablet 50 mg PO DAILY 01/24/20 12/04/21 12/03/21 History clonidine HCl 0.2 mg tablet 0.2 mg PO BID 10/16/21 12/04/21 12/03/21 History hydrocortisone 2.5 % topical cream 1 applic [place] Q6H 10 days #30 grams 12/04/21 Unknown Rx with perineal applicator (Anusol-HC) Allergies Allergy/AdvReac Type Severity Reaction Status Date / Time No Known Allergies Allergy Verified 12/04/21 06:11 PFSH Acute 2 PFSH: Medical History (Updated 05/12/24 @ 00:30 by Vlad Beltran MD) Dermoid cyst of brain Fibromyalgia Hyperlipidemia Obstructive sleep apnea Hypertension Left cervical radiculopathy Vitals/I&O/Wt Last Vital Signs Temp 98.0 F 05/11/24 19:15 Pulse 83 05/11/24 23:15 Resp 23 H 05/11/24 23:15 BP 149/92 05/11/24 23:15 Pulse Ox 95 05/11/24 23:00 O2 Del Method Room Air 05/11/24 19:15 O2 Flow Rate 2 05/11/24 20:45 Weight last 48 hrs Weight 74.843 kg Physical Exam 2 Narrative: Patient currently on 3 L Saturating 95% Awake and alert No sign of meningitis GCS 15 Nonfocal neuroexam Clinically very dehydrated No active chest pain or shortness of breath Facial flushing Pleasant and cooperative S1, S2 Mild rhonchi Data 05/11/24 20:41 05/11/24 20:41 Micro: Microbiology 05/11/24 23:08 Blood Culture - Preliminary Blood SPECIMEN COLLECTED 05/11/24 22:47 Blood Culture - Preliminary Blood SPECIMEN COLLECTED A&P Assessment and plan (1) Influenza A: (2) Viral pneumonia: (3) CHILANGO (acute kidney injury): (4) Dehydration: Plan Viral pneumonia Will cover atypical microorganism with doxycycline No need to add Tamiflu at this point patient has been having symptoms for last 1 week Acute hypoxia requiring 3 L Wean off oxygen gradually Does not use oxygen at home Acute on chronic kidney disease: Secondary to dehydration and use of lisinopril Hold lisinopril Continue IV fluids Dehydration: Continue IV fluids for next 24 hours Full code Cardiac diet DVT prophylaxis: Heparin Attestations 2 Medical Necessity Statement*: Anticipating discharge within 48 hours if creatinine keeps improving and she remains afebrile Diagnoses Influenza A J10.1 Viral pneumonia J12.9 CHILANGO (acute kidney injury) N17.9 Dehydration E86.0
[2024-05-12] VITALS (13 sets, daily range): BP systolic 133–168; BP diastolic 52–83; PULSE 86–112; RESP 16–24; TEMP 36.6–37; O2SAT 8–97; BMI 30.2
[2024-05-12 00:14] LABS: Procalcitonin 0.79 ng/mL (0-0.5)
[2024-05-12 01:15] LABS: Bilirubin Urine Negative (Negative); Blood Urine Negative (Negative); Glucose Urine UA Negative (Normal); Ketones Urine Trace (Negative); Leukocyte Esterase Urine 2+ (Negative); Nitrate Urine Negative (Negative); Protein Urine Trace (Negative); Urine Appearance Clear (CLEAR); Urine Color Yellow (Yellow); Urobilinogen Urine 0.2 mg/dL (Negative)
[2024-05-12 01:20] LABS: Add Urine Microscopic? YES; Bacteria Urine Trace /hpf; Hyaline Casts Urine 10.32 /lpf; RBC Urine 0-2 /hpf (0-2); Squamous Epithelial Cell Urine 0-5 /hpf (0-5); Universal Test for UA Present (0)
[2024-05-12 01:40] LABS: Add Urine Culture? No
[2024-05-12] MEDS: sodium chloride 0.9% 1,000 ML 75 ML IV ×2 (02:08→13:34)
[2024-05-12 05:26] LABS: Basophils % 0.2 %; Hematocrit 39.8 % (36-47); Lymphocytes # 2.4 10^3/uL (0.8-4.8); Lymphocytes % 18.2 %; Mean Corpuscular HGB Conc 33.2 g/dL (30-55); Mean Corpuscular Hemoglobin 31.1 pg (27-33); Mean Corpuscular Volume 93.9 fl (85-98); Mean Platelet Volume 10.9 fL (7.4-10.4); Monocytes % 7.7 %; Neutrophils # 9.43 10^3/uL (1.8-7.7); Nucleated Red Blood Cells % 0 %; Platelet Count 188 10^3/cmm (157-399); Red Blood Count 4.24 10^6/uL (3.85-5.65); Red Cell Distribution Width 13.2 % (12.1-15.1); White Blood Count 12.91 10^3/uL (3.29-11.43)
[2024-05-12] MEDS: heparin 5,000 unit/mL INJ 1 mL 5000 UNIT SUBCUT ×2 (05:28→17:08)
[2024-05-12 05:49] LABS: Calcium 9.4 mg/dL (8.5-10.5); Carbon Dioxide 19 mmol/L (22-29); Chloride 102 mmol/L (98-107); Creatinine Clr Calc Pharmacy 25.8743; Glomerular Filtration Rate 26.1 mL/min (90-130); Glucose 96 mg/dL (65-115); Magnesium 1.9 mg/dL (1.7-2.3); Osmolality Calculated 311 mOsm/kg (285-295); Sodium 138 mmol/L (136-145)
[2024-05-12 05:56] LABS: Blood Urea Nitrogen 84 mg/dL (8-23)
[2024-05-12] MEDS: doxycycline 100 mg Tablet PO (09:05)
[2024-05-12] MEDS: TRAMadol 50 mg Tablet PO (09:05)
[2024-05-12] MEDS: sennosides-docusate Tablet 1 TAB PO (09:05)
[2024-05-12] MEDS: atenolol 50 mg Tablet 25 MG PO (09:05)
--- NOTE | 2024-05-12 10:40 | CT_ITS ---
WS: [id number] CT HEAD TECHNIQUE: Noncontrast CT of the head obtained from the skullbase to the vertex. CLINICAL INFORMATION: ams COMPARISON: CT and MRI 2022 DLP: 1113.[address] scans at [facility] use at least one of these dose optimization techniques: automated e xposure control; mA and/or kV adjustment per patient size (includes targeted exams where dose is matc hed to clinical indication); or iterative reconstruction. FINDINGS: No evidence of intracranial hemorrhage or mass effect. Ventricular system and basal cisterns are ramirez nt. LEFT frontal dermoid cyst with several fat droplets overlying the LEFT frontal convexity similar to the prior studies compatible with prior partial rupture. This appears unchanged compared to the pr ior studies. Focal bony defect overlying the dermoid cyst compatible with small dermal sinus tract un changed. Mild small vessel changes. Mild parenchymal volume loss. Air-fluid levels in the maxillary sinuses co mpatible with maxillary sinusitis. Fluid with mild mucosal thickening in the ethmoid air cells and sp henoid sinus. Mastoid air cells are well aerated. CT/CT head wo con* [id number] IMPRESSION: 1. No evidence of intracranial hemorrhage 2. Stable LEFT frontal dermoid cyst with several fat droplets overlying the LE FT frontal convexity similar to the prior studies. Patient at risk for chemical meningitis is previously described. 3. Paranasal sinusitis. 4. No other acute findings.
--- NOTE | 2024-05-12 10:41 | CT_ITS ---
WS: [id number] CT CHEST TECHNIQUE: Noncontrast CT of the chest with coronal and sagittal reformatted images. CLINICAL INFORMATION: sob COMPARISON: None. DLP: 357.[address] scans at [facility] use at least one of these dose optimization techniques: automated e xposure control; mA and/or kV adjustment per patient size (includes targeted exams where dose is matc hed to clinical indication); or iterative reconstruction. FINDINGS: Patchy tree-in-bud opacities in the perihilar regions and both lower lobes. Findings may be infectious or inflammatory. No focal consolidation or pleural fluid. No focal pneumonia. Tree-in-bud opacities slightly worse in the lung bases. Moderate aortic atheromatous disease with calcification. Coronary calcification. No mediastinal or hi lar lymphadenopathy. No axillary lymphadenopathy. Adrenal glands are normal. Splenic granulomas. Small esophageal hiatal hernia. Cholelithiasis. Mild t horacic kyphosis. Mild thoracic curve. CT/CT chest wo con [id number] IMPRESSION: 1. Patchy tree-in-bud opacities in the perihilar regions and both lower lobes likely infectious or inflammatory. This is slightly worse in the dependent lowe r lobes bilaterally. 2. No focal pneumonia or pleural fluid. 3. No mediastinal or hilar lymphadenopathy. 4. Aortic calcification. Coronary calcification. 5. Cholelithiasis. 6. Tiny esophageal hernia.
--- NOTE | 2024-05-12 11:50 | PC.NURSE ---
Patient was unable to do all of the NIHSS scale possibly due to her confusion.
[2024-05-12] MEDS: cefTRIAXone 1,000 mg SDV 1000 MG IVP (11:56)
[2024-05-12] MEDS: AZITHROMYCIN ADD-Vantage 500 MG in 0.9% NaCl ADD-Vantage 250 ML 250 MG IV (13:30)
--- NOTE | 2024-05-12 15:09 | P.PN_ITS ---
Subjective 2 Subjective: Patient was seen this morning, she is alert to person, not to place, not to time, she is seen trying to remove her wristband, pulling at her IV, she moves bilateral upper and lower extremities, no facial droop no slurring words, but she keeps repeating or words, keeps repeating the sentence that she needs to change her clothes,, she is trying to get up out of bed, I instructed her to get back into bed, Vitals/I&O/Wt Last Vital Signs Temp 97.8 F 05/12/24 11:50 Pulse 102 H 05/12/24 11:50 Resp 18 05/12/24 11:50 BP 152/77 05/12/24 11:50 Pulse Ox 91 05/12/24 11:50 O2 Del Method Nasal Cannula 05/12/24 11:50 O2 Flow Rate 2 05/12/24 04:38 05/12/24 05/12/24 05/12/24 06:59 14:59 22:59 Intake Total 2503 / 2503 1227.5 / 1227.5 Output Total 1100 / 1100 120 / 120 Balance 1403 / 1403 1107.5 / 1107.5 Weight last 48 hrs Weight 73.573 kg Weight 74.843 kg Weight 74.843 kg Physical Exam 2 Const: COMMON NORMALS: no acute distress EXAM LIMITATIONS: altered mental status ORIENTATION/CONSCIOUSNESS: Yes awake Eye: COMMON NORMALS: Equal, round and reactive pupils present and EOMs intact bilaterally PUPIL: Yes Equal, round and reactive pupils present Resp: COMMON NORMALS: normal respiratory effort, No retractions, No use of accessory muscles and clear to auscultation bilaterally AUSCULTATION: clear to auscultation bilaterally Cardio: COMMON NORMALS: regular rate, regular rhythm, S1 normal heart sound present and S2 normal heart sound present RATE: regular rate RHYTHM: r egular rhythm HEART SOUNDS: S1 normal heart sound present and S2 normal heart sound present GI: COMMON NORMALS: Normal to inspection, nondistended, normoactive bowel sounds present and non-tender Extremity: COMMON NORMALS: no pedal edema Neuro: COMMON NORMALS: moves all extremities and no focal motor deficits O THER: Is encephalopathic, does follow commands, able to's squeeze my fingers bilaterally good mattress specialist strength, moves bilateral lower extremities, she is able to sit up to the side of the bed, as she is trying to crawl and stand up, no facial droop no slurring words, able to smile for me Sepsis: Is patient septic: Yes Focused sepsis exam performed: Yes F ocused sepsis exam: DP PT pulses palpable, cap refill less than 2 seconds, no mottling of lower extremities Date exam was performed: 05/12/24 Time exam was performed: 08:30 Data 05/12/24 05:02 05/12/24 05:02 Micro: Microbiology 05/11/24 23:08 Blood Culture - Preliminary Blood SPECIMEN COLLECTED 05/11/24 22:47 Blood Culture - Preliminary Blood SPECIMEN COLLECTED A&P Assessment and plan (1) Influenza A: (2) Viral pneumonia: (3) CHILANGO (acute kidney injury): (4) Dehydration: (5) Pneumonia: (6) AMS (altered mental status): (7) Acute uremia: (8) Sepsis: Plan Acute encephalopathy -Likely secondary to pneumonia, uremia, possible UTI, sepsis -Monitor mentation closely -CT head, neurochecks, NIH stroke scale Concerns for bacterial pneumonia Start Rocephin Start azithromycin Creatinine is elevated at 1.9, will hold off on Tamiflu Acute hypoxia requiring 3 L, secondary to pneumonia Wean off oxygen gradually Does not use oxygen at home Sepsis, secondary to pneumonia, sepsis features met given encephalopathy, acute hypoxia, leukocytosis, tachycardia Acute on chronic kidney disease: Secondary to sepsis, dehydration Hold lisinopril Continue IV fluids Uremia, uremic encephalopathy, IV fluids Dehydration: IV fluids Concern for UTI, Rocephin as above Resume home gabapentin, duloxetine Full code Cardiac diet DVT prophylaxis: Heparin Attestations 2 Medical Necessity Statement*: Patient requires hospitalization for pneumonia, acute hypoxia, encephalopathy, sepsis, chilango, uremia Diagnoses Influenza A J10.1 Viral pneumonia J12.9 CHILANGO (acute kidney injury) N17.9 Dehydration E86.0 Pneumonia J18.9 AMS (altered mental status) R41.82 Acute uremia N19 Sepsis A41.9
[2024-05-12] MEDS: ipratropium-albuterol 3 mL Neb INHALATION ×2 (16:42→22:36)
[2024-05-12] MEDS: gabapentin 400 mg Capsule PO (20:32)
[2024-05-13] VITALS (13 sets, daily range): BP systolic 115–169; BP diastolic 65–80; PULSE 80–112; RESP 16–18; TEMP 36.5–37; O2SAT 90–96
[2024-05-13] MEDS: sodium chloride 0.9% 1,000 ML 75 ML IV ×2 (02:16→17:17)
[2024-05-13] MEDS: heparin 5,000 unit/mL INJ 1 mL 5000 UNIT SUBCUT ×2 (05:32→17:42)
[2024-05-13] MEDS: atorvastatin 40 mg Tablet 20 MG PO (09:37)
[2024-05-13] MEDS: duloxetine 60 mg Capsule PO (09:37)
[2024-05-13] MEDS: gabapentin 400 mg Capsule PO ×3 (09:37→20:00)
[2024-05-13] MEDS: atenolol 50 mg Tablet 25 MG PO (09:37)
[2024-05-13] MEDS: TRAMadol 50 mg Tablet PO (09:38)
[2024-05-13] MEDS: sennosides-docusate Tablet 1 TAB PO (09:38)
[2024-05-13 09:45] LABS: Basophils % 0.3 %; Eosinophils % 0.1 %; Hematocrit 38.2 % (36-47); Lymphocytes # 1.4 10^3/uL (0.8-4.8); Lymphocytes % 19.6 %; Mean Corpuscular HGB Conc 33.2 g/dL (30-55); Mean Corpuscular Hemoglobin 30.7 pg (27-33); Mean Corpuscular Volume 92.3 fl (85-98); Monocytes # 0.7 10^3/uL (0.2-0.9); Monocytes % 9.9 %; Neutrophils # 4.76 10^3/uL (1.8-7.7); Neutrophils % 66.3 %; Nucleated Red Blood Cells % 0 %; Platelet Count 217 10^3/cmm (157-399); Red Blood Count 4.14 10^6/uL (3.85-5.65); Red Cell Distribution Width 13.3 % (12.1-15.1); White Blood Count 7.18 10^3/uL (3.29-11.43)
--- NOTE | 2024-05-13 09:46 | PC.CHAP ---
Pastoral Care Encounter/Spiritual Assessment Type of Contact [] Declined shank taper visit [] Patient/Family/Request visit [] Outpatient visit [] Follow-up visit [] Physician referral [] Code/Alert [] Routine visit [] Staff referral [] Actively dying [] Patient sleeping [] Family support [] [] Out of room [] Palliative care [] [] Receiving care in room [] Pre-surgical visit [] Trauma [] Long length of stay [] ICU visit [X] Other: STOP : Air Contaminants Relational/Emotional Strength [] Patient feels connected with others/family/visitors/staff [] Distress [] Loneliness/isolation [] Abandonment Spirituality of Patient [] Person of Adelita [] Attends Pentecostalism of their Adelita [] Believes in Prayer [] Reads Bible or Alevism materials [] There are Spiritual issues to be addressed Contract Officer Interventions [] Prayer [] Active listening [] Non-anxious presence [] Spiritual/emotional support [] Crisis/trauma care [] Spiritual counseling [] Bereavement support [] Provided bereavement packet [] Provided Bible/devotional materials [] Provided toy/stuffed animal, coloring book to patient or family member [] Provided Communion [] Anointing/[place] [] Salvation [] Completed spiritual assessment [] Other: Impact on Illness or Injury [] Angry [] Fearful [] Anxious [] Often cries [] Exhaustion [] Unable to work [] Unable to attend hinduism [] Unable to walk/stand [] Unable to read [] Unable to drive [] Unable to eat/drink [] Unable to sleep [] Unable to be with family [] Patient intubated [] Other: Summary Time spent with patient
[2024-05-13 10:24] LABS: NT Pro B Type Natriuretic Pept 2475 pg/mL (0-125); Procalcitonin 0.13 ng/mL (0-0.5)
[2024-05-13 10:36] LABS: Alanine Aminotransferase 22 U/L (0-33); Albumin Level 3.2 g/dL (3.5-5.2); Alkaline Phosphatase 59 U/L (35-105); Anion Gap 20.7 (5-19); Aspartate Amino Transferase 27 U/L (0-32); Blood Urea Nitrogen 23 mg/dL (8-23); C Reactive Protein 67.9 mg/L (0.0-4.9); Calcium 9.6 mg/dL (8.5-10.5); Carbon Dioxide 18 mmol/L (22-29); Chloride 107 mmol/L (98-107); Creatinine Clr Calc Pharmacy 60.1723; Globulin 3.5 g/dL (1.3-4.6); Glomerular Filtration Rate 70.9 mL/min (90-130); Glucose 113 mg/dL (65-115); Osmolality Calculated 298 mOsm/kg (285-295); Potassium 3.7 mmol/L (3.5-5.1); Sodium 142 mmol/L (136-145); Total Bilirubin 0.3 mg/dL (0.15-1.2); Total Protein 6.7 g/dL (6.6-8.7)
[2024-05-13 11:06] LABS: Erythrocyte Sedimentation Rate 48 mm/hr (0-15)
[2024-05-13] MEDS: cefTRIAXone 1,000 mg SDV 1000 MG IVP (11:50)
[2024-05-13] MEDS: latanoprost 0.005% Op Soln 2.5 mL Btl 1 DROP EYE-BOTH (11:56)
[2024-05-13 12:41] LABS: Ammonia 26 umol/L (11-51)
[2024-05-13] MEDS: AZITHROMYCIN ADD-Vantage 500 MG in 0.9% NaCl ADD-Vantage 250 ML 250 MG IV (13:31)
--- NOTE | 2024-05-13 15:16 | P.PN_ITS ---
Subjective 2 Subjective: Patient was seen this morning, she is alert to person, to place, not to time, she follows all commands, but family was at bedside advised that she is more confused she does remember her address, she does not remember where she was , she recognizes all the family was at bedside, but during conversations she reports seeing things are not there, she tells me about a white cat that she saw, but then realizes that that was a hallucination, no facial droop no slurring her words she is up and about can go to the bathroom without any issues, Vitals/I&O/Wt Last Vital Signs Temp 97.8 F 05/13/24 12:00 Pulse 82 05/13/24 12:00 Resp 16 05/13/24 12:00 BP 147/77 05/13/24 12:00 Pulse Ox 90 05/13/24 12:00 O2 Del Method Room Air 05/13/24 12:00 O2 Flow Rate 2 05/12/24 22:44 05/13/24 05/13/24 05/13/24 06:59 14:59 22:59 Intake Total 952.5 / 2300.0 490 / 490 Balance 952.5 / 2180.0 490 / 490 Weight last 48 hrs Weight 70.477 kg Weight 73.573 kg Weight 74.843 kg Weight 74.843 kg Physical Exam 2 Const: COMMON NORMALS: no acute distress and patient oriented x3 Resp: COMMON NORMALS: normal respiratory effort, No retractions, No use of accessory muscles and clear to auscultation bilaterally AUSCULTATION: clear to auscultation bilaterally Cardio: COMMON NORMALS: regular rate, regular rhythm, S1 normal heart sound present and S2 normal heart sound present RATE: regular rate RHYTHM: r egular rhythm HEART SOUNDS: S1 normal heart sound present and S2 normal heart sound present GI: COMMON NORMALS: Normal to inspection, nondistended, normoactive bowel sounds present and non-tender Extremity: COMMON NORMALS: no pedal edema Neuro: COMMON NORMALS: patient oriented x3 Psych: COMMON NORMALS: mental status grossly normal Data 05/13/24 09:36 05/13/24 09:36 Micro: Microbiology 05/11/24 23:08 Blood Culture - Preliminary Blood NEGATIVE TO DATE 05/11/24 22:47 Blood Culture - Preliminary Blood NEGATIVE TO DATE A&P Assessment and plan (1) Influenza A: (2) Viral pneumonia: (3) CHILANGO (acute kidney injury): (4) Dehydration: (5) Pneumonia: (6) AMS (altered mental status): (7) Acute uremia: (8) Sepsis: Plan Acute encephalopathy -Likely secondary to pneumonia, uremia, possible UTI, sepsis -Monitor mentation closely -CT head, neurochecks, NIH stroke scale Concerns for bacterial pneumonia Rocephin azithromycin Creatinine is elevated at 1.9, will hold off on Tamiflu Acute hypoxia requiring , secondary to pneumonia, on RA Wean off oxygen gradually Does not use oxygen at home Sepsis, secondary to pneumonia, sepsis features met given encephalopathy, acute hypoxia, leukocytosis, tachycardia Acute on chronic kidney disease: Secondary to sepsis, dehydration Hold lisinopril Continue IV fluids Uremia, uremic encephalopathy, IV fluids Dehydration: IV fluids Concern for UTI, Rocephin as above Resume home gabapentin, duloxetine Full code Cardiac diet DVT prophylaxis: Heparin Attestations 2 Medical Necessity Statement*: Patient requires hospitalization for pneumonia, acute encephalopathy, CHILANGO Diagnoses Influenza A J10.1 Viral pneumonia J12.9 CHILANGO (acute kidney injury) N17.9 Dehydration E86.0 Pneumonia J18.9 AMS (altered mental status) R41.82 Acute uremia N19 Sepsis A41.9
[2024-05-13] MEDS: ipratropium-albuterol 3 mL Neb INHALATION ×2 (15:18→20:49)
[2024-05-13] MEDS: benzonatate 100 mg Capsule PO (19:07)
[2024-05-13] MEDS: acetaminophen 500 mg Tablet PO (21:39)
[2024-05-13] MEDS: diphenhydrAMINE 25 mg Capsule PO (21:39)
[2024-05-14] VITALS (13 sets, daily range): BP systolic 151–192; BP diastolic 69–99; PULSE 65–100; RESP 15–18; TEMP 36.4–36.9; O2SAT 91–97
[2024-05-14 04:51] LABS: Basophils % 0.6 %; Eosinophils # 0.1 10^3/uL (0.0-0.8); Eosinophils % 0.7 %; Hematocrit 40.1 % (36-47); Lymphocytes # 1.9 10^3/uL (0.8-4.8); Lymphocytes % 25.5 %; Mean Corpuscular HGB Conc 33.4 g/dL (30-55); Mean Corpuscular Hemoglobin 31.2 pg (27-33); Mean Corpuscular Volume 93.3 fl (85-98); Mean Platelet Volume 10.8 fL (7.4-10.4); Monocytes # 0.7 10^3/uL (0.2-0.9); Monocytes % 9.2 %; Neutrophils # 4.28 10^3/uL (1.8-7.7); Nucleated Red Blood Cells % 0 %; Platelet Count 233 10^3/cmm (157-399); Red Cell Distribution Width 13.1 % (12.1-15.1); White Blood Count 7.25 10^3/uL (3.29-11.43)
[2024-05-14 05:05] LABS: Alanine Aminotransferase 23 U/L (0-33); Albumin Level 3.4 g/dL (3.5-5.2); Alkaline Phosphatase 64 U/L (35-105); Anion Gap 26.4 (5-19); Aspartate Amino Transferase 28 U/L (0-32); Blood Urea Nitrogen 12 mg/dL (8-23); C Reactive Protein 44.5 mg/L (0.0-4.9); Calcium 9.5 mg/dL (8.5-10.5); Carbon Dioxide 23 mmol/L (22-29); Chloride 99 mmol/L (98-107); Creatinine Clr Calc Pharmacy 60.1723; Globulin 3.2 g/dL (1.3-4.6); Glomerular Filtration Rate 70.9 mL/min (90-130); Glucose 102 mg/dL (65-115); Osmolality Calculated 300 mOsm/kg (285-295); Potassium 3.4 mmol/L (3.5-5.1); Sodium 145 mmol/L (136-145); Total Bilirubin 0.4 mg/dL (0.15-1.2); Total Protein 6.6 g/dL (6.6-8.7)
[2024-05-14 05:13] LABS: NT Pro B Type Natriuretic Pept 3572 pg/mL (0-125); Procalcitonin 0.09 ng/mL (0-0.5)
[2024-05-14] MEDS: sodium chloride 0.9% 1,000 ML 75 ML IV (05:33)
[2024-05-14] MEDS: heparin 5,000 unit/mL INJ 1 mL 5000 UNIT SUBCUT (06:11)
[2024-05-14] MEDS: ipratropium-albuterol 3 mL Neb INHALATION (08:18)
[2024-05-14] MEDS: potassium chloride ER 20 mEq Tablet 40 MEQ PO (09:49)
[2024-05-14] MEDS: FUROsemide 10 mg/mL SDV 2mL 20 MG IVP (09:49)
[2024-05-14] MEDS: gabapentin 400 mg Capsule PO (09:49)
[2024-05-14] MEDS: sennosides-docusate Tablet 1 TAB PO (09:50)
[2024-05-14] MEDS: TRAMadol 50 mg Tablet PO (09:50)
[2024-05-14] MEDS: benzonatate 100 mg Capsule PO (09:50)
[2024-05-14] MEDS: atenolol 50 mg Tablet 25 MG PO (09:52)
[2024-05-14] MEDS: latanoprost 0.005% Op Soln 2.5 mL Btl 1 DROP EYE-BOTH (09:53)
[2024-05-14] MEDS: duloxetine 60 mg Capsule PO (09:53)
--- NOTE | 2024-05-14 11:36 | PM.DCS ---
Discharge Providers Date of Admission: 05/12/24 09:05 Date of Discharge: May 14, 2024 Attending Provider at Admission: Vlad Beltran MD Attending Provider at Discharge: Volodymyr Becerra MD Primary Care Provider: Micheline Hodge MD Diagnoses at Discharge Discharge Diagnosis (1) Influenza A: Status: Acute (2) Viral pneumonia: Status: Acute (3) CHILANGO (acute kidney injury): Status: Acute (4) Dehydration: Status: Acute (5) Pneumonia: Status: Acute (6) AMS (altered mental status): Status: Acute (7) Acute uremia: Status: Acute (8) Sepsis: Status: Acute Reason for Visit Reason for Visit: flu symptoms Hospital Course Hospital Course Zulma Cooln is a 68 year old female who presented today with generalized weakness and fatigue. Patient is stating that for last 1 week she has been experiencing cough, low-grade fever, chills, she has experiencing low appetite, decreased p.o. intake associate with diarrhea. She is endorsing nausea but no vomiting. On top of that she has been taking her antihypertensive regimen including lisinopril. In the ER she has been diagnosed with influenza A, CHILANGO. Severe dehydration. Requiring 3 L of oxygen. She was hypoxic on room air. Patient was admitted to [facility] for acute hypoxic respiratory failure with sepsis secondary to pneumonia, with concerns for UTI overall patient clinically improved, respiratory status improved, will be discharged on prednisone, Levaquin, with close follow-up with primary care provider as outpatient Acute renal failure, uremia improved with IV fluids Patient did have acute encephalopathy during her hospitalization ? Initially thought to be secondary to pneumonia, uremia, UTI, sepsis -She has significant episodes of encephalopathy, alert oriented x 1, kept repeating questions, would not give straightforward answer -Her mentation has significantly improved, but patient does have episodes of short-term memory loss such as she does remember what she had for breakfast this morning but it takes time for her to get the answer, she knows the day that she was born, but does not remember the year, the recognizes family members at bedside, gets their birthdate somewhat right, she did have hallucinations which have resolved, she alert to person, to place, she does not remember the year, -No focal neurologic deficits, no facial droop, no slurring of words, pupils equal round reactive to light, cranial nerves II to XII grossly intact -No strokelike symptoms -CT of the head 1. No evidence of intracranial hemorrhage 2. Stable LEFT frontal dermoid cyst with several fat droplets overlying the LEFT frontal convexity similar to the prior studies. Patient at risk for chemical meningitis is previously described. 3. Paranasal sinusitis. 4. No other acute findings. -Discussed with family about dermoid cyst, the neurologist at [facility] monitors this, and he has recommended continued observation -Did discuss with family, no acute changes, no neck pain, no neck stiffness afebrile she is ambulatory continue to monitor follow-up with neurology -She could be withdrawing from her hydrocodone which she uses scheduled, which I have continued scheduled -She has been resumed on her gabapentin, duloxetine -Some component could be from hypertension encephalopathy, I have resumed her home blood pressure medications -Although thought is that she likely has some degree of baseline memory loss, possible early dementia, that has worsened while she is here in the hospital -Discussed with family to monitor mentation at home, if any fevers, hallucinations, sudden change, sudden change in functionality, sudden change in in mentation bring her back to the hospital or call 9 1 -Follow-up with neurology in 1 month Physical Exam Const: COMMON NORMALS: no acute distress ORIENTATION/CONSCIOUSNESS: Yes awake, Yes oriented to person and Yes oriented to place; not oriented to time Resp: COMMON NORMALS: normal respiratory effort, No retractions, No use of accessory muscles and clear to auscultation bilaterally AUSCULTATION: clear to auscultation bilaterally Cardio: COMMON NORMALS: regular rate, regular rhythm, S1 normal heart sound present and S2 normal heart sound present RATE: regular rate RHYTHM: regular rhythm HEART SOUNDS: S1 normal heart sound present and S2 normal heart sound present GI: COMMON NORMALS: Normal to inspection, nondistended, normoactive bowel sounds present and non-tender Extremity: COMMON NORMALS: no pedal edema Neuro: SENSORIUM/ORIENTATION: Yes oriented to person, Yes oriented to place and No oriented to time Psych: COMMON NORMALS: mental status grossly normal Discharge Data Studies Completed and Pending Completed Studies During Hospitalization Category Date Time Status CT chest wo con [id number] Routine Cat Scan 05/12/24 10:[address] head wo con* [id number] Stat Cat Scan 05/12/24 10:40 Completed CXRIE [XR chest 2V insp/exp 41211] Urgent Exams 05/11/24 20:44 Completed Pending at discharge Category Date Time Status Bacterial Antigen Stat Lab 05/12/24 15:24 Uncollected Blood Culture Stat Lab 05/11/24 23:08 Results C Reactive Protein AM LABS Lab 05/15/24 04:00 Ordered C Reactive Protein AM LABS Lab 05/16/24 04:00 Ordered Complete Blood Count w/Auto AM LABS Lab 05/15/24 04:00 Ordered Complete Blood Count w/Auto AM LABS Lab 05/16/24 04:00 Ordered Comprehensive Metabolic Panel AM LABS Lab 05/15/24 04:00 Ordered Comprehensive Metabolic Panel AM LABS Lab 05/16/24 04:00 Ordered NT Pro B Type Natriuretic Pept QAM Lab 05/15/24 06:00 Ordered NT Pro B Type Natriuretic Pept QAM Lab 05/16/24 06:00 Ordered Procalcitonin AM LABS Lab 05/15/24 04:00 Ordered Procalcitonin AM LABS Lab 05/16/24 04:00 Ordered Sputum Culture and Gram Stain Stat Lab 05/12/24 16:45 Results Radiology Impressions Chest X-Ray 05/11/24 20:44 IMPRESSION: No acute cardiopulmonary process. Head CT 05/12/24 10:40 IMPRESSION: 1. No evidence of intracranial hemorrhage 2. Stable LEFT frontal dermoid cyst with several fat droplets overlying the LEFT frontal convexity similar to the prior studies. Patient at risk for chemical meningitis is previously described. 3. Paranasal sinusitis. 4. No other acute findings. Chest CT 05/12/24 10:41 IMPRESSION: 1. Patchy tree-in-bud opacities in the perihilar regions and both lower lobes likely infectious or inflammatory. This is slightly worse in the dependent lower lobes bilaterally. 2. No focal pneumonia or pleural fluid. 3. No mediastinal or hilar lymphadenopathy. 4. Aortic calcification. Coronary calcification. 5. Cholelithiasis. 6. Tiny esophageal hernia. Laboratory Results WBC 7.25 10^3/uL (3.29-11.43) 05/14/24 03:38 RBC 4.30 10^6/uL (3.85-5.65) 05/14/24 03:38 Hgb 13.40 g/dL (11.27-16.99) 05/14/24 03:38 Hct 40.1 % (36-47) 05/14/24 03:38 MCV 93.3 fl (85-98) 05/14/24 03:38 MCH 31.2 pg (27-33) 05/14/24 03:38 MCHC 33.4 g/dL (30-55) 05/14/24 03:38 RDW 13.1 % (12.1-15.1) 05/14/24 03:38 Plt Count 233 10^3/cmm (157-399) 05/14/24 03:38 MPV 10.8 fL (7.4-10.4) H 05/14/24 03:38 Neut % (Auto) 59.0 % 05/14/24 03:38 Lymph % (Auto) 25.5 % 05/14/24 03:38 [place] % (Auto) 9.2 % 05/14/24 03:38 Eos % (Auto) 0.7 % 05/14/24 03:38 Baso % (Auto) 0.6 % 05/14/24 03:38 Neut # (Auto) 4.28 10^3/uL (1.8-7.7) 05/14/24 03:38 Lymph # (Auto) 1.9 10^3/uL (0.8-4.8) 05/14/24 03:38 [place] # (Auto) 0.7 10^3/uL (0.2-0.9) 05/14/24 03:38 Eos # (Auto) 0.1 10^3/uL (0.0-0.8) 05/14/24 03:38 Baso # (Auto) 0.0 10^3/uL (0.0-0.1) 05/14/24 03:38 Nucleated RBC % (auto) 0 % 05/14/24 03:38 Nucleated RBCs # 0.0 /100WBC 05/14/24 03:38 ESR 48 mm/hr (0-15) H 05/13/24 09:36 Sodium 145 mmol/L (136-145) 05/14/24 03:38 Potassium 3.4 mmol/L (3.5-5.1) L 05/14/24 03:38 Chloride 99 mmol/L (98-107) 05/14/24 03:38 Carbon Dioxide 23 mmol/L (22-29) 05/14/24 03:38 Anion Gap 26.4 (5-19) H 05/14/24 03:38 BUN 12 mg/dL (8-23) 05/14/24 03:38 Creatinine 0.8 mg/dL (0.5-0.9) 05/14/24 03:38 GFR Calculation 70.9 mL/min (90-130) L 05/14/24 03:38 Glucose 102 mg/dL (65-115) 05/14/24 03:38 Calculated Osmolality 300 mOsm/kg (285-295) H 05/14/24 03:38 Lactic Acid 1.2 mmol/L (0.5-2.2) 05/11/24 20:41 Calcium 9.5 mg/dL (8.5-10.5) 05/14/24 03:38 Magnesium 1.9 mg/dL (1.7-2.3) 05/12/24 05:02 Total Bilirubin 0.4 mg/dL (0.15-1.2) 05/14/24 03:38 AST 28 U/L (0-32) 05/14/24 03:38 ALT 23 U/L (0-33) 05/14/24 03:38 Alkaline Phosphatase 64 U/L (35-105) 05/14/24 03:38 Ammonia 26 umol/L (11-51) 05/13/24 12:11 C-Reactive Protein 44.5 mg/L (0.0-4.9) H 05/14/24 03:38 NT-Pro-B Natriuret Pep 3572 pg/mL (0-125) H 05/14/24 03:38 Total Protein 6.6 g/dL (6.6-8.7) 05/14/24 03:38 Albumin 3.4 g/dL (3.5-5.2) L 05/14/24 03:38 Globulin 3.2 g/dL (1.3-4.6) 05/14/24 03:38 Procalcitonin 0.09 ng/mL (0-0.5) 05/14/24 03:38 Urine Color Yellow (Yellow) 05/12/24 00:12 Urine Appearance Clear (CLEAR) 05/12/24 00:12 Urine pH 5.0 (5-7) 05/12/24 00:12 Ur Specific [place] 1.010 (1.005-1.030) 05/12/24 00:12 Urine Protein Trace (Negative) A 05/12/24 00:12 Urine Glucose (UA) Negative (Normal) 05/12/24 00:12 Urine Ketones Trace (Negative) 05/12/24 00:12 Urine Blood Negative (Negative) 05/12/24 00:12 Urine Nitrate Negative (Negative) 05/12/24 00:12 Urine Bilirubin Negative (Negative) 05/12/24 00:12 Urine Urobilinogen 0.2 mg/dL (Negative) 05/12/24 00:12 Ur Leukocyte Esterase 2+ (Negative) A 05/12/24 00:12 Urine RBC 0-2 /hpf (0-2) 05/12/24 00:12 Urine WBC 11-20 /hpf (0-5) H 05/12/24 00:12 Ur Squamous Epith Cells 0-5 /hpf (0-5) 05/12/24 00:12 Amorphous Sediment Not Reportable 05/12/24 00:12 Urine Bacteria Trace /hpf (NONE) 05/12/24 00:12 Hyaline Casts 10.32 /lpf 05/12/24 00:12 Coronavirus (PCR) Negative (Negative) 05/11/24 20:41 Influenza A (PCR) Positive (Negative) 05/11/24 20:41 Influenza Type B (PCR) Negative (Negative) 05/11/24 20:41 RSV (PCR) Negative (Negative) 05/11/24 20:41 Vitals Last Vital Signs Temp 98.4 F 05/14/24 08:23 Pulse 95 05/14/24 08:24 Resp 18 05/14/24 08:23 BP 151/69 05/14/24 11:17 Pulse Ox 95 05/14/24 08:18 O2 Del Method Room Air 05/14/24 08:18 O2 Flow Rate 2 05/14/24 02:40 Discharge Plan Discharge Patient Disposition: Home Condition: Stable Prescriptions: New levofloxacin 750 mg tablet 750 mg PO DAILY 5 Days Qty: 5 0RF benzonatate 100 mg Capsule 100 mg PO TID PRN (Reason: Cough) 5 Days Qty: 15 0RF albuterol sulfate 90 mcg/actuation HFA aerosol inhaler 1 inh inhalation QID PRN (Reason: shortness of breath or wheezing) Qty: 8.5 0RF prednisone 20 mg tablet 20 mg PO BID 5 Days Qty: 10 0RF Continued tramadol 50 mg tablet 50 mg PO DAILY atenolol 25 mg tablet 25 mg PO DAILY duloxetine 60 mg capsule, delayed rel sprinkle 60 mg PO DAILY omeprazole 20 mg capsule,delayed release(DR/EC) 20 mg PO DAILY pravastatin 20 mg tablet 20 mg PO DAILY latanoprost 0.005 % drops 1 drop ophthalmic (eye) DAILY lisinopril 40 mg tablet 40 mg PO DAILY clonidine HCl 0.1 mg tablet 0.1 mg PO BID triamterene-hydrochlorothiazid 37.5-25 mg capsule 1 cap PO DAILY gabapentin capsule 400 mg PO TID Changed hydrocodone-acetaminophen 5-325 mg tablet 1 tab PO TID PRN (Reason: pain) Qty: 1 0RF Discharge Orders: Discharge Order (Routine); Ordered 05/14/24 Ordered By: Volodymyr Becerra Referrals: Micheline Hodge MD [Primary Care Provider] - Discharge Diet: Cardiac Discharge Activity: Resume usual activity Patient Instructions: Opioid Safety Discharge Attestations Time Spent in Discharge Care*: greater than 30 min Quality Metrics Clinical Quality Measures [ No reported AMI, CVA or VTE this stay] Coding Level of Care Code 25995 Total time (in minutes) for Discharge: 45 Diagnoses Influenza A J10.1 Viral pneumonia J12.9 CHILANGO (acute kidney injury) N17.9 Dehydration E86.0 Pneumonia J18.9 AMS (altered mental status) R41.82 Acute uremia N19 Sepsis A41.9
[2024-05-14] MEDS: methylPREDNISolone sod succ 125 mg/2 mL INJ IVP (11:50)
[2024-05-14] MEDS: hydroCHLOROthiazide 25 mg Tablet PO (11:51)
[2024-05-14] MEDS: HYDROcodone-acetaminophen 5-325 mg Tablet 1 TAB PO (11:51)
[2024-05-14] MEDS: lisinopril 20 mg Tablet 40 MG PO (11:51)
[2024-05-14] MEDS: cloNIDine 0.1 mg Tablet PO (11:52)
[2024-05-14] MEDS: cefTRIAXone 1,000 mg SDV 1000 MG IVP (11:52)
--- NOTE | 2024-05-14 16:21 | PC.NURSE ---
Discussed discharge with patient. Discussed new medications, continued medications and follow up appointments. Patient verbalized understanding.
== END 2024-05-14 14:37 | disposition home or self-care (01) | DRG 871 ==
LOC: ER 21:37 → MEDSURG 05-12 00:38
PROVIDERS: Emergency Medicine; Admitting Provider Internal Medicine; Emergency Provider General Practice; PCP Internal Medicine; Visit Provider Family Medicine
DX: A41.9 Sepsis, unspecified organism (principal); G93.41 Metabolic encephalopathy; J12.9 Viral pneumonia, unspecified; N17.9 Acute kidney failure, unspecified; N39.0 Urinary tract infection, site not specified; R65.20 Severe sepsis without septic shock; J10.1 Influenza due to other identified influenza virus with other respiratory manifestations; E86.0 Dehydration; N19 Unspecified kidney failure; E78.5 Hyperlipidemia, unspecified; G47.33 Obstructive sleep apnea (adult) (pediatric); R09.02 Hypoxemia; I12.9 Hypertensive chronic kidney disease with stage 1 through stage 4 chronic kidney disease, or unspecified chronic kidney disease; N18.9 Chronic kidney disease, unspecified; Z79.82 Long term (current) use of aspirin
CPT/HCPCS: 36415; 70450; 71046; 71250; 80048; 80053; 81001; 82140; 83605; 83735; 83880; 84145; 85025; 85651; 86140; 87040; 87070; 87102; 87106; 87205; 87206; 87637; 94640; 94664; 94760; 96361; 96372; 96374; 99222; 99232; 99285; G0378; J0456; J0696; J1644; J1940; J2919; J7030; J7050; J7120; Q0162

== ENCOUNTER 2024-10-13 13:51 | Outpatient (CLI) | payer MEDICARE, SELFPAY ==
--- NOTE | 2024-10-13 | MM_ITS ---
WS: [id number] BILATERAL 3D TOMOSYNTHESIS DIGITAL SCREENING MAMMOGRAPHY WITH CAD CLINICAL INFORMATION: ANNUAL SCREENING HISTORY: Screening mammogram. No current complaints. COMPARISON: 2023 TECHNIQUE: Bilateral CC and MLO views. FINDINGS: The breasts are composed of heterogeneous fibroglandular density tissue, which can limit the detection of small underlying mass lesions. No suspicious mass, asymmetry, calcifications, or architectural distortion. No evidence of malignancy. Punctate and vascular calcifications. MM/MM [facility] tomosynthesis [id number] IMPRESSION: DENSITY: The breasts are heterogeneously dense, which may obscure small masses. BI-RADS: 2 - Benign FOLLOW UP: 1 Year Follow-up Recommend return to annual screening mammography.
== END 2024-10-13 13:52 | disposition home or self-care (01) ==
LOC: RAD 13:52
PROVIDERS: PCP Internal Medicine; Visit Provider Internal Medicine
DX: Z12.31 Encounter for screening mammogram for malignant neoplasm of breast (principal); R92.333 Mammographic heterogeneous density, bilateral breasts; R92.1 Mammographic calcification found on diagnostic imaging of breast
CPT/HCPCS: 77063; 77067

== ENCOUNTER 2025-02-07 13:31 | Outpatient (CLI) | payer MEDICARE, SELFPAY ==
--- NOTE | 2025-02-07 13:36 | US_ITS ---
WS: [id number] RENAL ULTRASOUND HISTORY: CHRONIC KIDNEY DZ COMPARISON: None available. TECHNIQUE: 2-D and color Doppler imaging of the kidney submitted. Right kidney: 8.2 cm x 4.3 cm x 3.7 cm. Cortex: 1.0 cm Mild renal atrophy with mild diffuse cortical thinning. No obstruction. No mass. Left kidney: 8.3 cm x 4.3 cm x 5.5 cm. Cortex: 1.3 cm Mild renal atrophy with normal size cortex. No mass or obstruction. Aorta: Normal. Urinary Bladder: Not distended. Cholelithiasis. US/US renal BI* [id number] IMPRESSION: 1. Mild bilateral renal atrophy with no obstruction. 2. Mild diffuse cortical thinning RIGHT kidney. 3. Cholelithiasis.
== END 2025-02-07 13:32 | disposition home or self-care (01) ==
LOC: RAD 13:34
PROVIDERS: PCP Internal Medicine; Visit Provider Internal Medicine
DX: N18.32 Chronic kidney disease, stage 3b (principal); N27.1 Small kidney, bilateral; R93.421 Abnormal radiologic findings on diagnostic imaging of right kidney; K80.20 Calculus of gallbladder without cholecystitis without obstruction
CPT/HCPCS: 76770